=== PATIENT | female | born 1980 | race Caucasian/White ===

== ENCOUNTER 2018-09-14 12:16 | Emergency (ER) | payer BC ==
--- NOTE | 2018-09-14 13:39 | ULT ---
Please see the separately dictated, concurrently performed Doppler venous ultrasound of the right low er extremity for details concerning the left lower extremity. POS: SAW
== END 2018-09-14 14:41 | disposition home or self-care (01) ==
LOC: ERS 12:16
DX: I80.01 Phlebitis and thrombophlebitis of superficial vessels of right lower extremity (principal); G43.909 Migraine, unspecified, not intractable, without status migrainosus
CPT/HCPCS: 36415; 85379; 93970